=== PATIENT | female | born 1990 | race Hispanic/Latino ===

== ENCOUNTER 2019-08-30 17:37 | Emergency (ER) | payer MEDICAID, OTHER ==
[~2019-08-30 17:37] MED LIST: PNV1TABL17 PO
[2019-08-30] MEDS ORDERED: ONDANSETRON ODT 4 MG TAB ONE (18:31)
[2019-08-30 18:37] LABS: BASOPHILS % (AUTO) 0.2 % (0.0-5.0); EOSINOPHILS % (AUTO) 0.9 % (0.0-8.0); HEMATOCRIT 35.5 % (36-48); LYMPHOCYTES % (AUTO) 17.5 % (21.0-51.0); MEAN CORPUSCULAR HEMOGLOBIN 29.4 pg (27.0-33.0); MEAN CORPUSCULAR HGB CONC 34.4 g/dL (32.0-36.0); MEAN CORPUSCULAR VOLUME 85.5 fL (79-99); MONOCYTES % (AUTO) 6.4 % (3.0-13.0); NEUTROPHILS % (AUTO) 74.7 % (40.0-77.0); PLATELET COUNT (AUTO) 279 K/uL (130-400); RED BLOOD CELL COUNT(AUTO) 4.15 MIL/uL (4.00-5.50); RED CELL DISTRIBUTION WIDTH 13.7 % (11.0-15.5); WHITE BLOOD COUNT (AUTO) 11.6 K/uL (4.8-10.8)
[2019-08-30 18:48] LABS: CREATININE 0.4 mg/dL (0.5-1.5); POTASSIUM 3.9 mmol/L (3.5-5.1)
[2019-08-30 18:59] LABS: APPEARANCE,URINE Cloudy (CLEAR); BILIRUBIN,URINE Negative (NEGATIVE); COLOR,URINE Yellow (YELLOW); GLUCOSE, URINE (UA) Negative (NEGATIVE); KETONES,URINE Negative (NEGATIVE); LEUKOCYTE ESTERASE ,URINE Small (NEGATIVE); NITRATE,URINE Negative (NEGATIVE); OCCULT BLOOD,URINE Negative (NEGATIVE); PH,URINE 6.5 (5.0-8.0); PROTEIN,URINE Negative (NEGATIVE)
[2019-08-30 19:15] LABS: ALBUMIN 2.5 g/dL (3.5-5.0); BILIRUBIN,TOTAL 0.2 mg/dL (0.2-1.0); TOTAL PROTEIN, SERUM 6.2 g/dL (6.0-8.3)
[2019-08-30 19:19] LABS: AMORPHOUS SEDIMENT,UR Few /LPF (None Seen); BACTERIA,URINE Few /HPF (None Seen); RBC,URINE None Seen /HPF (0-1)
== END 2019-08-30 22:45 | disposition home or self-care (01) ==
LOC: EDH 17:37
DX: O21.8 Other vomiting complicating pregnancy (principal); R19.7 Diarrhea, unspecified; R50.9 Fever, unspecified; R30.0 Dysuria; Z3A.18 18 weeks gestation of pregnancy
CPT/HCPCS: 36415; 76805; 80053; 81001; 84702; 85025

== ENCOUNTER 2019-12-01 13:43 | Emergency (ER) | payer MEDICAID | END 2019-12-01 16:43 | disposition home or self-care (01) | LOC: EDH 13:43 | DX: O26.893 Other specified pregnancy related conditions, third trimester (principal); Z3A.30 30 weeks gestation of pregnancy; Z67.91 Unspecified blood type, Rh negative | CPT/HCPCS: 36415; 83033; 86900; 86901; 96372; 99283; J2791 ==

== ENCOUNTER 2020-01-10 20:50 | Inpatient (IN) | payer MEDICAID ==
[~2020-01-10] VITALS: Ht 157.5 cm; Wt 108.4 kg
[2020-01-10] MEDS ORDERED: LACTATED RINGERS 1000ML 1,000 ML IV PRN (22:34)
[2020-01-10] MEDS ORDERED: LACTATED RINGERS 1000ML 1,000 ML IV ONE ×2 (22:40→23:45)
[2020-01-10] MEDS ORDERED: OXYTOCIN 10 USP UNITS/ML 20 UNIT in LACTATED RINGERS 1000ML 1,000 ML IV SCH (22:45)
[2020-01-10 23:12] LABS: BILIRUBIN,URINE Negative (NEGATIVE); COLOR,URINE Dark Yellow (YELLOW); GLUCOSE, URINE (UA) Negative (NEGATIVE); KETONES,URINE Trace mg/dL (NEGATIVE); LEUKOCYTE ESTERASE ,URINE Trace (NEGATIVE); NITRATE,URINE Negative (NEGATIVE); OCCULT BLOOD,URINE Negative (NEGATIVE); PH,URINE 5.5 (5.0-8.0); PROTEIN,URINE Trace mg/dL (NEGATIVE)
[2020-01-10 23:19] LABS: HEMATOCRIT 35.4 % (36-48); MEAN CORPUSCULAR HGB CONC 33.9 g/dL (32.0-36.0); MEAN CORPUSCULAR VOLUME 85.5 fL (79-99); RED BLOOD CELL COUNT(AUTO) 4.14 MIL/uL (4.00-5.50); RED CELL DISTRIBUTION WIDTH 13.7 % (11.0-15.5); WHITE BLOOD COUNT (AUTO) 8.9 K/uL (4.8-10.8)
[2020-01-10 23:19] LABS: AMPHET/METH SCREEN,URINE NEGATIVE (NEGATIVE); BARBITURATE SCREEN, URINE NEGATIVE (NEGATIVE); BENZODIAZEPINES SCREEN,URINE NEGATIVE (NEGATIVE); CANNABINOID SCREEN,URINE NEGATIVE (NEGATIVE); COCAINE SCREEN,URINE POSITIVE (NEGATIVE); OPIATE SCREEN,URINE NEGATIVE (NEGATIVE); PHENCYCLIDINE SCREEN,URINE NEGATIVE (NEGATIVE)
[2020-01-10 23:21] LABS: APPEARANCE,URINE SLIGHTLY CLOUDY (CLEAR)
[2020-01-10 23:50] LABS: BACTERIA,URINE Few /HPF (None Seen); CALCIUM OXALATE CRYSTALS,UR Many /LPF (None Seen); MUCUS,URINE Moderate LPF (None Seen); RBC,URINE 0-1 /HPF (0-1)
[2020-01-11 01:46] VITALS: BP 111/69
[2020-01-11] MEDS ORDERED: PREN1TAB26 PO (01:51)
[2020-01-11] MEDS ORDERED: FERR-82 PO (01:51)
[2020-01-11] MEDS ORDERED: OXYTOCIN-LR 20 UNITS/1000 ML 1,000 ML IV ONE ×2 (02:42→13:24)
[2020-01-11] MEDS ORDERED: OXYTOCIN 10 USP UNITS/ML 20 UNIT in DEXTROSE 5 %-0.45 % NACL 1,000 ML IV SCH (04:00)
[2020-01-11] MEDS ORDERED: ACETAMINOPHEN 325 MG TAB PO PRN (13:30)
[2020-01-11] MEDS ORDERED: BENZOCAINE/LANOLIN/ALOE VERA 60 ML AEROSOL TP PRN (13:30)
[2020-01-11] MEDS ORDERED: ACETAMINOPHEN-CODEINE 300/30MG TAB PO PRN (13:30)
[2020-01-11] MEDS ORDERED: DIPH,PERTUSS(ACELL),TET VAC/PF 0.5 ML VIAL IM PRN (13:30)
[2020-01-11] MEDS ORDERED: WITCH HAZEL 1 PAD TP PRN (13:30)
[2020-01-11] MEDS ORDERED: LANOLIN 30GM OINTMENT TP PRN (13:30)
[2020-01-11] MEDS ORDERED: MEASLES/MUMPS/RUBELLA VACCINE, LIVE 0.5 ML/VIAL SQ PRN (13:30)
--- NOTE | 2020-01-11 15:15 | NUR ---
assisted to the bathroon, voided 900 ml, pericare done, assisted back to bed. RECOVERY QBL - 31 ML Addendum: 01/11/20 at 1537 by MIKY ROSS RN Amended: Links added.
--- NOTE | 2020-01-11 17:09 | NUR ---
+cocaine at deliver/ CPS report # [id number] Orlin met with pt and Rc Vasquez [phone]. This is first child for couple, son Rc Vasquez. Pt has 2 other children son 5 and daughter 3 who were removed from pt by CPS and pt states they are in [place] with family. 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 states they have "everything" for baby including car seat and Dr Sanchez will follow baby [place]. Mom and are aware that she tested positive for cocaine at delivery and baby will be tested as well. Mother states she last used "on the I think.. maybe on the ". Pt stated she was not a regular user, "I take iron, could that had made me positive for cocaine"? Pt denies regular abuse during . Pt denies any hx with abuse, domestic violence,legal or mental health issues. "I do have anxiety". Pt states she was never dx by PCP or psychiatrist, states she self dx. Informed parents that baby will be staying for monitoring related to drug exposure. parents state they have means to come see baby till [place]. ORLIN spoke to Bella Moody at CPS. Pt has no open case. Orlin made report to CPS hotline #[phone] to Sienna sheikh [phone]. Waiting on CPS to see baby and provide safety plan for baby. Addendum: 01/11/20 at 1720 by HAYDEN JUNIOR SS Amended: Links added.
[2020-01-11] MEDS: IBUPROFEN 600 MG TABLET PO PRN (18:47)
[2020-01-11 19:40] VITALS: BP 113/52
[2020-01-11] MEDS: DOCUSATE SODIUM 100 MG CAP PO SCH (21:03)
[2020-01-11 23:50] VITALS: BP 110/54
[2020-01-12 03:34] VITALS: BP 107/52
--- NOTE | 2020-01-12 05:03 | NUR ---
RBC WILL NOT BE DRAWN ; MOTHER AND BABY ARE BOTH RH NEGATIVE.
[2020-01-12 07:37] VITALS: BP 90/55
[2020-01-12 08:13] LABS: HEPATITIS Bs ANTIGEN SCREEN P Negative (Negative)
[2020-01-12] MEDS: IBUPROFEN 600 MG TABLET PO PRN (09:26)
[2020-01-12] MEDS: DOCUSATE SODIUM 100 MG CAP PO SCH (09:26)
--- NOTE | 2020-01-12 11:06 | NUR ---
CPS f/u Sw recd message from Aubrie Araujo, CPS casewker [phone]. She works 3pm to 12pm. SW left message that pt will dc today. Baby to remain for observation.
--- NOTE | 2020-01-12 11:09 | NUR ---
CPS f/u Sw recd message from Aubrie Araujo, CPS casewker [phone]. She works 3pm to 12pm. SW left message that pt will dc today. Baby to remain for observation.
[2020-01-12 11:21] VITALS: BP 110/68
--- NOTE | 2020-01-12 16:05 | NUR ---
DISCHARGE PT LEFT UNIT VIA WHEELCHAIR, ACCOMPANIED BY FAMILY FRIEND. BABY TO STAY IN NURSERY FOR CONTINUITY OF CARE. DENIED PAIN AND HAD NO COMPLAINTS. TRANSPORTED BY PERSONAL VEHICLE.
== END 2020-01-12 16:05 | disposition home or self-care (01) | DRG 560 ==
LOC: LDH 20:50 → WSH 01-11 14:49
PROVIDERS: ADMIT Obstetrics & Gynecology; ATTEND Obstetrics & Gynecology
PROC: 10E0XZZ Delivery of Products of Conception, External Approach (ICD-10-PCS; principal; 2020-01-11)
PROC: 10907ZC Drainage of Amniotic Fluid, Therapeutic from Products of Conception, Via Natural or Artificial Opening (ICD-10-PCS; 2020-01-11)
PROC: 3E0234Z Introduction of Serum, Toxoid and Vaccine into Muscle, Percutaneous Approach (ICD-10-PCS; 2020-01-11)
PROC: 3E0134Z Introduction of Serum, Toxoid and Vaccine into Subcutaneous Tissue, Percutaneous Approach (ICD-10-PCS; 2020-01-11)
PROC: 3E0R3BZ Introduction of Anesthetic Agent into Spinal Canal, Percutaneous Approach (ICD-10-PCS; 2020-01-11)
PROC: 00HU33Z Insertion of Infusion Device into Spinal Canal, Percutaneous Approach (ICD-10-PCS; 2020-01-11)
DX: O99.324 Drug use complicating childbirth (principal); Z37.0 Single live birth; E66.9 Obesity, unspecified; O99.214 Obesity complicating childbirth; F14.90 Cocaine use, unspecified, uncomplicated; Z23 Encounter for immunization; Z3A.39 39 weeks gestation of pregnancy
CPT/HCPCS: 36415; 80305; 81001; 85027; 86592; 86850; 86900; 86901; 87340; 88307; A4314; A4606; G0378; J2590; J7120

== ENCOUNTER 2023-03-31 18:14 | Emergency (ER) | payer MEDICAID ==
[~2023-03-31] VITALS: Ht 157.5 cm; Wt 92.5 kg
[~2023-03-31 18:14] MED LIST changes: +FERR-82 PO; -PNV1TABL17 PO; +PREN1TAB26 PO
[2023-03-31 18:29] VITALS: BP 114/68; PULSE 90; RESP 16; O2SAT 99
== END 2023-03-31 20:24 | disposition left against medical advice (07) ==
LOC: EDH 18:14
DX: K08.89 Other specified disorders of teeth and supporting structures (principal); Z53.21 Procedure and treatment not carried out due to patient leaving prior to being seen by health care provider

== ENCOUNTER 2024-12-03 13:42 | Emergency (ER) | payer SELFPAY ==
[~2024-12-03] VITALS: Ht 162.6 cm; Wt 90.7 kg
[2024-12-03] MEDS: ondanSETRON ODT 4MG TAB SL SCH (14:05)
[2024-12-03 14:16] LABS: BASOPHILS # (AUTO) 0.08 K/uL (0.00-0.20); EOSINOPHILS # (AUTO) 0.48 K/uL (0.00-0.70); EOSINOPHILS % (AUTO) 5.9 % (0.0-8.0); HEMATOCRIT 42.9 % (36-48); IMMATURE GRANULOCYTE ABSOLUTE 0.03 K/uL (0-1); LYMPHOCYTES # (AUTO) 2.8 K/uL (1.0-4.8); LYMPHOCYTES % (AUTO) 34.2 % (21.0-51.0); MEAN CORPUSCULAR HEMOGLOBIN 29.3 pg (27.0-33.0); MEAN CORPUSCULAR HGB CONC 33.3 g/dL (32.0-36.0); MEAN CORPUSCULAR VOLUME 87.9 fL (79-99); MONOCYTES # (AUTO) 0.9 K/uL (0.1-1.0); NEUTROPHILS # (AUTO) 3.9 K/uL (1.8-7.7); NEUTROPHILS % (AUTO) 47.5 % (40.0-77.0); PLATELET COUNT (AUTO) 353 K/uL (130-400); RED BLOOD CELL COUNT(AUTO) 4.88 MIL/uL (4.00-5.50); WHITE BLOOD COUNT (AUTO) 8.1 K/uL (4.8-10.8)
[2024-12-03 14:18] LABS: APPEARANCE,URINE CLOUDY (CLEAR); BILIRUBIN,URINE NEGATIVE (NEGATIVE); COLOR,URINE YELLOW (YELLOW); GLUCOSE, URINE (UA) NEGATIVE (NEGATIVE); KETONES,URINE NEGATIVE (NEGATIVE); LEUKOCYTE ESTERASE ,URINE 250 Leu/uL (NEGATIVE); NITRATE,URINE NEGATIVE (NEGATIVE); OCCULT BLOOD,URINE LARGE (NEGATIVE); PROTEIN,URINE 30 mg/dL (NEGATIVE)
[2024-12-03 14:24] LABS: BACTERIA,URINE FEW /HPF (None Seen); MUCUS,URINE MOD LPF (None Seen); SQUAMOUS EPITHELIAL CELL,UR MANY /HPF (0-2)
[2024-12-03 14:27] LABS: AMPHET/METH SCREEN,URINE POSITIVE (NEGATIVE); BARBITURATE SCREEN, URINE NEGATIVE (NEGATIVE); BENZODIAZEPINES SCREEN,URINE NEGATIVE (NEGATIVE); CANNABINOID SCREEN,URINE NEGATIVE (NEGATIVE); COCAINE SCREEN,URINE NEGATIVE (NEGATIVE); OPIATE SCREEN,URINE NEGATIVE (NEGATIVE); PHENCYCLIDINE SCREEN,URINE NEGATIVE (NEGATIVE)
[2024-12-03 14:28] LABS: HCG,QUALITATIVE URINE NEGATIVE (NEGATIVE)
[2024-12-03 14:40] LABS: CREATININE 0.6 mg/dL (0.5-1.0); POTASSIUM 3.6 mmol/L (3.5-5.1)
[2024-12-03] MEDS: cefTRIAXone 1G VIAL IVPB ONE (15:09)
[2024-12-03] MEDS: 0.9% NACL 500ML IV.SOLN 500 ML IV SCH (15:17)
--- NOTE | 2024-12-03 15:32 | ERN ---
General Chief Complaint: Fatigue Stated Complaint: WEAKNESS Time Seen by MD: 13:48 Time Seen by Midlevel: 13:48 Source: patient History of Present Illness Initial Comments 34-year-old female presents to the ED for evaluation of weakness. Patient reports fatigue, nausea, but denies any vomiting, abdominal pain or any other associated symptoms at this time. Patient states she had a miscarriage five months ago and is requesting a shot you got after having a miscarriage. Patient states the shot she is requesting is due to unable to get after her miscarriage. Denies significant past medical history. Allergies: Coded Allergies: No Known Drug Allergies (Unverified Allergy, Unknown, 01/16/15) Home Meds Active Scripts Cephalexin (Cephalexin) 500 Mg Tablet, 1 TAB PO BID for 7 Days, #14 TAB 0 Refills Prov:JONATHAN JACKSON 12/03/24 Reported Medications Ferrous Sulfate (Iron) 325 Mg Tablet, 325 MG PO HS, TAB 01/11/20 Vit/Iron Fumarate/FA ( Vitamins Tablet) 1 Each Tablet, 1 EACH PO HS, TAB 01/11/20 Past Medical History Past Medical History: No Pertinent History Past Surgical History: None Female( History) LMP: Nov 17, 2024 : 4 Para: 3 Aborts: 1 ROS Dictation Constitutional: Positive for weakness, fatigue Negative for fever,chills, and weight loss Eyes: Negative for injury, pain,redness, and discharge ENT: Negative for injury,pain or swelling Cardiovascular: Negative for chest pain, palpitations, and edema Respiratory: Negative for shortness of breath, cough, and wheezing, Abdomen/GI: Positive for nausea Negative for abdominal pain, vomiting, diarrhea, and constipation Back: Negative for injury and pain : Negative for injury, bleeding and discharge MS/Extremity: Negative for injury and deformity Skin: Negative for rash, and discoloration Neuro: Negative for headache, weakness, numbness, tingling, and seizure Psych: Negative for suicide ideation, homicidal ideation, and hallucinations Physical Exam Physical Exam Dictation General: awake, alert, no acute distress Head/Face: Normocephalic, atraumatic Eyes: PERRL, EOMI, normal conjunctiva ENT: oral cavity clear, oral mucosa moist Neck: Supple, normal range of motion Cardiovascular: RRR, normal S1/S2 Respiratory: CTAB, no respiratory distress, no rales or wheezes Abdomen: Soft, non-tender, non-distended, no guarding or rebound. Skin: Warm, dry, normal turgor, no rash MS/Extremity: Pulses equal, no cyanosis, neurovascular intact, FROM Neuro: COAx4, GCS 15, strength 5/5, CN 2-12 intact, normal cerebellar exam, normal gait Psych: Normal behavior, mood, and affect normal Results Laboratory and Microbiology Lab and Micro Result Laboratory Tests Test 12/03/24 14:05 12/03/24 14:10 Urine Color YELLOW (YELLOW) Urine Appearance CLOUDY (CLEAR) H Urine pH 5.0 (5.0-8.0) Urine Specific [place] 1.041 (1.001-1.031) Urine Protein 30 mg/dL (NEGATIVE) H Urine Glucose (UA) NEGATIVE mg/dL (NEGATIVE) Urine Ketones NEGATIVE mg/dL (NEGATIVE) Urine Occult Blood LARGE (NEGATIVE) H Urine Nitrate NEGATIVE (NEGATIVE) Urine Bilirubin NEGATIVE mg/dL (NEGATIVE) Urine Urobilinogen 2.0 mg/dL (0.2-1.0) H Urine Leukocyte Esterase 250 [place]/uL (NEGATIVE) H Urine RBC 6-10 /HPF (0-1) H Urine WBC 11-25 /HPF (0-1) H Urine Squamous Epithelial Cells MANY /HPF (0-2) Urine Bacteria FEW /HPF (None Seen) Urine HCG, Qualitative NEGATIVE (NEGATIVE) Urine Opiates Screen NEGATIVE (NEGATIVE) Urine Barbiturates Screen NEGATIVE (NEGATIVE) Urine Phencyclidine Screen NEGATIVE (NEGATIVE) Urine Amphetamines Screen POSITIVE (NEGATIVE) H Urine Benzodiazepines Screen NEGATIVE (NEGATIVE) Urine Cocaine Screen NEGATIVE (NEGATIVE) Urine Marijuana (THC) Screen NEGATIVE (NEGATIVE) White Blood Count 8.1 K/uL (4.8-10.8) Red Blood Count 4.88 MIL/uL (4.00-5.50) Hemoglobin 14.3 g/dL (12.0-16.0) Hematocrit 42.9 % (36-48) Mean Corpuscular Volume 87.9 fL (79-99) Mean Corpuscular Hemoglobin 29.3 pg (27.0-33.0) Mean Corpuscular Hemoglobin Concent 33.3 g/dL (32.0-36.0) Red Cell Distribution Width 14.0 % (11.0-15.5) Platelet Count 353 K/uL (130-400) Mean Platelet Volume 8.6 fL (7.5-10.5) Immature Granulocyte % (Auto) 0.4 % (0-1) Neutrophils (%) (Auto) 47.5 % (40.0-77.0) Lymphocytes (%) (Auto) 34.2 % (21.0-51.0) Monocytes (%) (Auto) 11.0 % (3.0-13.0) Eosinophils (%) (Auto) 5.9 % (0.0-8.0) Basophils (%) (Auto) 1.0 % (0.0-5.0) Neutrophils # (Auto) 3.9 K/uL (1.8-7.7) Lymphocytes # (Auto) 2.8 K/uL (1.0-4.8) Monocytes # (Auto) 0.9 K/uL (0.1-1.0) Eosinophils # (Auto) 0.48 K/uL (0.00-0.70) Basophils # (Auto) 0.08 K/uL (0.00-0.20) Absolute Immature Granulocyte (auto 0.03 K/uL (0-1) Nucleated Red Blood Cells 0.0 % (0.0-0.19) Sodium Level 145 mmol/L (136-145) Potassium Level 3.6 mmol/L (3.5-5.1) Chloride Level 111 mmol/L (101-111) Carbon Dioxide Level 24 mmol/L (21-32) Blood Urea Nitrogen 15 mg/dL (7-18) Creatinine 0.6 mg/dL (0.5-1.0) Glomerular Filtration Rate Calc 119 mL/min (>90) Random Glucose 94 mg/dL (70-105) Total Calcium 7.9 mg/dL (8.5-10.1) L Labs Reviewed?: Yes MDM MDM: Differential diagnosis: , electrolyte imbalance, anemia, drug use Rationale: 34-year-old female presents to the ED for evaluation of weakness. Patient reports fatigue, nausea, but denies any vomiting, abdominal pain or any other associated symptoms at this time. Patient states she had a miscarriage five months ago and is requesting a shot you got after having a miscarriage. Patient states the shot she is requesting is due to unable to get after her miscarriage. Denies significant past medical history. Per physical examination patient is in no acute distress, nonlabored breathing, abdomen is soft nontender. Labs obtained CBC and chemistry within normal limits. UA indicates a urinary tract infection with 250 leukocyte esterase and 11-25 WBCs. Drug screen positive for amphetamines. Patient received Zofran and IV fluids in the ED. Patient was educated on findings and diagnosis. Advised to follow up with PCP. Return to the emergency department if any worsening symptoms. Patient verbalized understanding. Patient stable for discharge. Previous outside records reviewed: Old ER visits. Risk of complication and/or morbidity or mortality of patient management: None Medications-Per medication reconciliation Need for hospitalization: Patient does not meet criteria for hospitalization. Need for emergency major/minor surgery: No There are no social concerns with this patient. Prescription drug management Prescriptions will include symptomatic care Patient's prior external medical records from other ER visits were reviewed by me as indicated. Prior testing and results from previous visits were reviewed. Prior tests were taken into account with medical decision making and resource utilization, independent historian/historians were used to obtain complete medical history. I independently interpreted the test that were performed, results were reviewed by me and considered findings on radiology if ordered. Medical management and examination interpretation discussions were had by me with other qualified healthcare professionals as indicated for the patient's care. ED Course Orders Procedure Category Date Status Time Cbc With Differential LAB 12/03/24 Complete 13:58 Basic Metabolic Panel LAB 12/03/24 Complete 13:58 Urinalysis LAB 12/03/24 Complete W/Microscopic 13:58 ,Urine Test LAB 12/03/24 Complete 13:58 Drug Screen Urine LAB 12/03/24 Complete 13:58 Ondansetron Odt 4mg PHA 12/03/24 Complete Tab (Zofran 4mg Odt) 14:00 Culture Urine TICO 12/03/24 In Process 14:18 Ceftriaxone 1g Vial PHA 12/03/24 Complete (Rocephine 1g Inj) 15:30 0.9% Nacl 500ml PHA 12/03/24 Complete Iv.Soln (Ns 500ml 15:30 Current Medications Medications (Trade) Dose Ordered Sig/Krista Route PRN Reason Start Time Stop Time Status Last Admin Dose Admin Ceftriaxone Sodium (ROCEphine 1G INJ) 1 gm ONCE ONCE IVPB 12/03/24 15:30 12/03/24 15:31 DC 12/03/24 15:09 Ondansetron HCl (zoFRAN 4MG ODT) 4 mg ONCE SL 12/03/24 14:00 12/03/24 16:03 DC 12/03/24 14:05 Sodium Chloride 500 ml @ 0 mls/hr ONCE IV 12/03/24 15:30 12/03/24 16:03 DC 12/03/24 15:17 Vital Signs Date Time Temp Pulse Resp B/P (MAP) Pulse Ox O2 Delivery O2 Flow Rate FiO2 12/03/24 16:02 97.7 80 16 112/59 98 Room Air* 0 21 12/03/24 15:15 97.7 80 16 116/67 98 Room Air* 0 21 12/03/24 13:47 97.7 80 16 112/71 98 0 12/03/24 13:47 97.7 80 16 112/71 98 Room Air* 0 21 DX & DISP Disposition: Discharge Departure Impression: Primary Impression: UTI (urinary tract infection) Additional Impression: Substance abuse Condition: Stable Scripts Cephalexin (Cephalexin) 500 Mg Tablet 1 TAB PO BID for 7 Days, #14 TAB 0 Refills Prov: JONATHAN JACKSON 12/03/24 Additional Instructions: Discharge home. Rest. Follow up with primary care DrDanielle in 24 hours. Return to the ER for any acute changes or worsening symptoms. If any medications were prescribed take as directed. Okay to continue home medications unless otherwise discussed during your visit in the emergency room today. Patient was also advised to follow-up with primary care physician in 1 to 2 days for continued monitoring. Referrals: ADAM KELLEY MD (PCP) I performed the substantive portion of the visit. I have reviewed and personally made and approve the management plan that is documented in the notes by myself or the [facility]. I acknowledge full responsibility for the patient's man agement plan. JONATHAN JACKSON December 03, 2024 15:32
[2024-12-03] MEDS ORDERED: CEPH500T PO (15:44)
[2024-12-03 16:02] VITALS: BP 112/59; PULSE 80; RESP 16; TEMP 97.7; O2SAT 98
== END 2024-12-03 16:03 | disposition home or self-care (01) ==
LOC: EDH 13:42
DX: N39.0 Urinary tract infection, site not specified (principal); F19.10 Other psychoactive substance abuse, uncomplicated
CPT/HCPCS: 99284; 96365; 80048; 80305; 85025; 87086; 81001; 81025; 36415; J0696